=== PATIENT | male | born 1975 | race Caucasian/White ===

== ENCOUNTER → 2016-09-26 | Outpatient (CLI) | payer OTHER ==
[~2016-09-26] MED LIST: IBUP-238 PO; IBUP600T26 PO; OXYC-360 PO; PROM25SU8 PO
--- NOTE | 2016-09-26 16:26 | RADRPT ---
EXAM DATE/TIME: 09/26/2016 14:11 [facility] COMPARISON: KNEE RIGHT COMPLETE ([id number]), September 26, 2016, 14:05. INDICATIONS : Right hip pain. MEDICAL HISTORY : None. SURGICAL HISTORY : None. ENCOUNTER: Initial ACUITY: 2 weeks PAIN SCORE: 10/10 LOCATION: Right hip FINDINGS: A two view examination of the right hip was performed. The primary and secondary trabecular pattern of the femoral neck is intact. The hip joint is of normal width without significant sclerosis or bon y hypertrophy. The acetabulum is grossly intact. CONCLUSION: 1. Femoral head is well situated within the acetabular fossa. No acute bony abnormality is identified . Dimas Elaine MD on September 26, 2016 at 16:23 Board Certified Radiologist. This report was verified electronically.
--- NOTE | 2016-09-26 17:09 | RADRPT ---
EXAM DATE/TIME: 09/26/2016 14:05 [facility] COMPARISON: No previous studies available for comparison. INDICATIONS : Right knee pain & swelling. MEDICAL HISTORY : None. SURGICAL HISTORY : None. ENCOUNTER: Initial ACUITY: 1 week PAIN SCORE: 10/10 LOCATION: Right knee FINDINGS: Moderate degenerative changes are noted involving the patellofemoral and medial femorotibial joint. There is no acute fracture or dislocation of the right knee. Small suprapatellar knee joint effusion is noted. CONCLUSION: 1. Moderate degenerative changes involving the patellofemoral and medial femorotibial joints. 2. Jen suprapatellar knee joint effusion. 3. No acute fracture or dislocation. Tavo Conde MD on September 26, 2016 at 17:03 Board Certified Radiologist. This report was verified electronically.
== END ==
LOC: HRAD 13:21
DX: M25.562 Pain in left knee (principal)
CPT/HCPCS: 73502; 73564

== ENCOUNTER → 2016-09-30 | Outpatient (CLI) | payer OTHER ==
--- NOTE | 2016-09-30 16:30 | RADRPT ---
EXAM DATE/TIME: 09/30/2016 16:13 [facility] COMPARISON: No previous studies available for comparison. INDICATIONS : Left knee pain after fall. MEDICAL HISTORY : DDD. SURGICAL HISTORY : None. ENCOUNTER: Initial ACUITY: 3 weeks PAIN SCORE: 5/10 LOCATION: Left medial knee. FINDINGS: Multiple views of the knee show joint space narrowing with periarticular sclerotic change and minimal osteophyte production within the medial compartment. No fracture or dislocation. A small joint effus ion. Soft tissues are unremarkable. CONCLUSION: 1. Small joint effusion. 2. Mild medial compartment osteoarthritis. Cristian Tavarez Jr., MD on September 30, 2016 at 16:28 Board Certified Radiologist. This report was verified electronically.
== END ==
LOC: HRAD 15:41
DX: M25.562 Pain in left knee (principal)
CPT/HCPCS: 73564